=== PATIENT | female | born 1975 | race Caucasian/White ===

== ENCOUNTER 2018-11-01 17:10 | Emergency (ER) | payer OTHER ==
[~2018-11-01] VITALS: Ht 160 cm; Wt 93.8 kg
[2018-11-01 17:18] VITALS: Ht 160 cm; Wt 93.8 kg
[2018-11-01] MEDS ORDERED: ONDANSETRON 4 MG INJ IV STA (17:52)
[2018-11-01] MEDS ORDERED: SOD CHLORIDE 0.9% 1,000 ML IV STA (17:52)
[2018-11-01] MEDS ORDERED: morphine 2 MG INJ IV STA (17:52)
--- NOTE | 2018-11-01 17:55 | ERD ---
ER Documentation Chief Complaint Chief Complaint c/o red rectal bleed for a couple of days, referred to ER by urgent care HPI 43-year-old female, presents the emergency department, complaining of 2 days with rectal pain, associated with rectal bleeding when passing stools. The pain is sharp, constant, 7/10, associated with subjective fever and general malaise. The patient was seen at an urgent care and referred to the ER for further evaluation. The patient denies abdominal pain, no nausea or vomiting. No history of previous episodes. In regards of her medical history, the patient had a hysterectomy and she smokes 1 pack of cigarettes per day during the last 20 years. ROS All systems reviewed and are negative except as per history of present illness. Medications Home Meds Active Scripts Hydrocortisone* Topical (Hydrocortisone* Topical) 2.5%-28.3 Gm Cream..g., 1 APPLIC TOP BID for 7 Days, #1 TUB Prov:ZACHARIAH TAYLOR MD 11/01/18 Acetaminophen* (Tylenol*) 325 Mg Tablet, 2 TAB PO Q6 PRN for PAIN AND OR ELEVATED TEMP, #20 TAB Prov:ZACHARIAH TAYLOR MD 11/01/18 Ibuprofen* (Motrin*) 400 Mg Tab, 400 MG PO Q6H PRN for PAIN AND OR ELEVATED TEMP, #20 TAB Prov:ZACHARIAH TAYLOR MD 11/01/18 Allergies Allergies: Coded Allergies: No Known Allergy (Unverified , 11/01/18) PMhx/Soc Medical and Surgical Hx: pt denies Medical Hx History of Surgery: Yes (hysterectomy, breast augmentation) Physical Exam Vitals Vital Signs Date Temp Pulse Resp B/P (MAP) Pulse Ox O2 O2 Flow FiO2 Time Delivery Rate 11/01/18 98.3 94 16 102/63 98 Room Air 20:32 (76) 11/01/18 98.7 100 20 133/80 97 17:18 (97) Physical Exam Const: No acute distress Head: Atraumatic Eyes: Normal Conjunctiva ENT: Normal External Ears, Nose and Mouth. Neck: Full range of motion. No meningismus. Resp: Clear to auscultation bilaterally Cardio: Regular rate and rhythm, no murmurs Abd: Soft, non tender, non distended. Normal bowel sounds Rectal: Normal inspection, skin tags, no evidence of thrombosed hemorrhoid, no external masses, erythema or fluctuance. Skin: No petechiae or rashes Back: No midline or flank tenderness Ext: No cyanosis, or edema Neur: Awake and alert Psych: Normal Mood and Affect Result Diagram: 11/01/18180711/01/181807 Results 24 hrs Laboratory Tests Test 11/01/18 18:03 11/01/18 18:08 Urine Test NEGATIVE White Blood Count 11.6 10^3/ul Red Blood Count 4.39 10^6/ul Hemoglobin 12.1 g/dl Hematocrit 36.7 % Mean Corpuscular Volume 83.6 fl Mean Corpuscular Hemoglobin 27.6 pg Mean Corpuscular Hemoglobin Concent 33.0 g/dl Red Cell Distribution Width 15.5 % Platelet Count 317 10^3/UL Mean Platelet Volume 11.0 fl Immature Granulocytes % 0.800 % Neutrophils % 72.4 % Lymphocytes % 20.6 % Monocytes % 4.8 % Eosinophils % 1.1 % Basophils % 0.3 % Nucleated Red Blood Cells % 0.0 /100WBC Immature Granulocytes # 0.090 10^3/ul Neutrophils # 8.4 10^3/ul Lymphocytes # 2.4 10^3/ul Monocytes # 0.6 10^3/ul Eosinophils # 0.1 10^3/ul Basophils # 0.0 10^3/ul Nucleated Red Blood Cells # 0.0 10^3/ul Urine Color YELLOW Urine Clarity SLIGHTLY CLOUDY Urine pH 5.0 Urine Specific [place] 1.013 Urine Ketones NEGATIVE mg/dL Urine Nitrite NEGATIVE mg/dL Urine Bilirubin NEGATIVE mg/dL Urine Urobilinogen NEGATIVE mg/dL Urine Leukocyte Esterase NEGATIVE Alanis/ul Urine Microscopic RBC 1 /HPF Urine Microscopic WBC 1 /HPF Urine Squamous Epithelial Cells FEW /HPF Urine Mucus FEW /HPF Urine Hemoglobin NEGATIVE mg/dL Urine Glucose NEGATIVE mg/dL Urine Total Protein NEGATIVE mg/dl Sodium Level 143 mmol/L Potassium Level 4.4 mmol/L Chloride Level 107 mmol/L Carbon Dioxide Level 27 mmol/L Anion Gap 9 Blood Urea Nitrogen 13 mg/dl Creatinine 0.66 mg/dl Est Glomerular Filtrat Rate mL/min > 60 mL/min Glucose Level 98 mg/dl Calcium Level 9.7 mg/dl Total Bilirubin 0.3 mg/dl Direct Bilirubin 0.00 mg/dl Indirect Bilirubin 0.3 mg/dl Aspartate Amino Transf (AST/SGOT) 16 IU/L Alanine Aminotransferase (ALT/SGPT) 16 IU/L Alkaline Phosphatase 52 IU/L Total Protein 8.3 g/dl Albumin 4.6 g/dl Globulin 3.70 g/dl Albumin/Globulin Ratio 1.24 Lipase 76 U/L Current Medications Medications Dose Sig/Román Start Time Status Last (Trade) Ordered Route PRN Stop Time Admin Dose Reason Admin Sodium 1,000 ml @ Q1H STAT 11/01/18 DC 11/01/18 Chloride 1,000 mls/hr IV 17:52 11/01/18 18:09 18:51 Morphine 2 mg ONCE STAT 11/01/18 DC 11/01/18 Sulfate IV 17:52 11/01/18 18:09 (morphine) 17:58 Ondansetron 4 mg ONCE STAT 11/01/18 DC 11/01/18 HCl (Zofran IV 17:52 11/01/18 18:09 Inj) 17:58 IV Flush 10 ml STK-MED 11/01/18 DC 11/01/18 (NS 10 ml) ONCE .ROUTE 19:20 11/01/18 19:34 19:21 Sodium 100 ml @ ud STK-MED 11/01/18 DC 11/01/18 Chloride ONCE .ROUTE 19:20 11/01/18 19:34 19:21 Iohexol 150 ml STK-MED 11/01/18 DC 11/01/18 (Omnipaque ONCE .ROUTE 19:20 11/01/18 19:34 300mg/ ml) 19:21 Patient: GURJIT RAHMAN : 1975 Age: 43 Sex: F [id number] DOS: 11/01/18 1752 Ordering MD: ZACHARIAH TAYLOR MD Location: [facility] Room/Bed: PROCEDURE: CT Abdomen and Pelvis with contrast. CLINICAL INDICATION: Rectal pain. Evaluate for abscess/proctitis. TECHNIQUE: Multiple contiguous axial CT images of the abdomen and pelvis were obtained following the administration of 105 cc of Omnipaque-300. Coronal and sagittal reconstructions were also performed. DICOM images are available. CTDIvol (mGy): 18.97; Total Exam DLP (mGy-cm): 1217.40. One or more of the following dose reduction techniques were utilized: - Automated exposure control. - Adjustment of the mA and/or kV according to patient size. - Use of iterative reconstruction technique. COMPARISON: None. FINDINGS: Lower thorax: Mild atelectatic changes are seen within the lung bases. Liver: Uniform parenchymal enhancement. Mild diffuse fatty infiltration. Enlarged measuring 26.4 cm in a craniocaudal dimension. Patent portal vein. Biliary: Normal gallbladder. No biliary dilatation. Spleen: Normal. Pancreas: Normal. Adrenal Glands: Normal. Urinary: The bladder is collapsed with mild concentric wall thickening. Gastrointestinal: The stomach is collapsed. The small intestines are un remarkable. The appendix is normal. Sigmoid diverticulosis is observed. The rectosigmoid colon is collapsed. There is no chad rectal edema. Scattered few tiny perirectal lymph nodes are observed. The perianal soft tissues are symmetric. There is no discrete rim enhancing fluid collection to suggest abscess. The ischioanal and ischiorectal fossa are clear. Lymph nodes: Shoddy lymph nodes throughout the retroperitoneum. Vascular: Normal. Peritoneum/mesentery: No free fluid or free air. Reproductive organs: Hysterectomy. The adnexa are unremarkable. Musculoskeletal: Unremarkable. Additional comments: Bilateral breast implants are in place. IMPRESSION: No evidence of abdominopelvic mass, lymphadenopathy or acute inflammatory pathology. Specifically, there is no evidence of proctitis or perirectal/perianal abscess. The perianal soft tissues are symmetric without evidence of discrete rim enhancing fluid collection to suggest the presence of an abscess. Correlate with rectal exam. Hepatomegaly with steatosis. Sigmoid diverticulosis. No evidence of diverticulitis. Procedures/MDM Vital signs stable, patient hemodynamically stable. Differential diagnosis include but not limited to: Hemorrhoids, rectal fissure, inflammatory bowel disease, anal fistula, AV malformation, colitis. Low suspicion for active rectal bleeding. Physical examination and clinical presentation consistent most likely with resolved rectal bleeding most likely secondary to internal hemorrhoid. During the ED course the patient remained stable, no new complaints. Results and clinical impression discussed with the father who agrees with management. The patient is stable to be discharged home with instructions to follow up with the primary care provider in the next 48h. If symptoms persist, worsen or new symptoms develop, then patient should return to the ED immediat missy. Instructions explained and given directly by me to the patient with acknowledgment and demonstrated understanding. Disclaimer: Inadvertent spelling and grammatical errors are likely due to EHR/ dictation software use and do not reflect on the overall quality of patient care. Also, please note that the electronic time recorded on this note does not necessarily reflect the actual time of the patient encounter. Departure Diagnosis: Primary Impression: Rectal pain Condition: Stable Additional Instructions: Thank you very much for allowing us to participate in your care. Your health and safety is our top priority at [facility]. The evaluation in the emergency department has been done to rule out an acute emergency. Chronic, [id number] conditions may have not been evaluated; therefore, you need to follow up with a primary care provider in the next 48h. If symptoms persist, worsen or new symptoms develop, then patient should return to the ED immediately. Call your primary care doctor TOMORROW for an appointment during the next 2-4 days and bring all the information provided. Have prescriptions filled and follow precisely the directions on the label. If the symptoms get worse and your provider is unavailable, return to the Emergency Department immediately. ZACHARIAH TAYLOR MD Nov 01, 2018 17:55
[2018-11-01] MEDS ORDERED: IOHEXOL 300MG/ML 150 ML BTL ONE (19:20)
[2018-11-01] MEDS ORDERED: SOD CHLORIDE 0.9% 100 ML ONE (19:20)
[2018-11-01] MEDS ORDERED: HC30CR25 TOP (20:22)
[2018-11-01] MEDS ORDERED: ACET325T33 PO (20:22)
[2018-11-01] MEDS ORDERED: IBUP-1561 PO (20:22)
[2018-11-01 20:32] VITALS: BP 102/63; PULSE 94; RESP 16
== END 2018-11-01 20:32 | disposition home or self-care (01) ==
LOC: FTE 17:10
DX: K62.89 Other specified diseases of anus and rectum (principal); Z87.891 Personal history of nicotine dependence
CPT/HCPCS: 36415; 74177; 80053; 81001; 83690; 84703; 85025; 96374; 96375; 99285; J2270; J2405; J7030; Q9967; 81003